=== PATIENT | female | born 1965 | race Caucasian/White ===

== ENCOUNTER 2016-11-26 18:35 | Emergency (ER) | payer SELFPAY ==
[2016-11-26 18:52] VITALS: BP 158/91
--- NOTE | 2016-11-26 20:11 | ERNOTE ---
Head Injury HPI - Narrative Date of Service: 11/26/16 - General Time Seen by Provider: 11/26/16 20:00 Source: patient - Immun/Allergies/Home Medications Immunization: IMMUNIZATION HX Immunizations Up to Date Yes History of Influenza Vaccine No Hx Pneumococcal Vaccination No Allergies/Adverse Reactions: Allergies Allergy/AdvReac Type Severity Reaction Status Date / Time muscle relaxers Allergy Severe Anaphylaxis Uncoded 09/20/14 11:00 Home Medications: HOME MEDICATIONS Naproxen [Naprosyn] 500 mg PO BID PRN #60 tab 11/26/16 [Last Taken Unknown] - Pain Score Pain Score #1 Pain Score: 7 - History of Present Illness Narrative: 51yo, F, presents to ER for evaluation of L. neck pain and L. upper back. Hx of rotator cuff injury in the past to L. shoulder, but states pain feels different. 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 She also admits to being under a lot of stress this week and is unsure if that has contributed to her symptoms. She denies CP, but she did have some heart burn and nausea yesterday, no recurrence today. She does have family hx of heart disease with her ftr. Occurred: other - "several days", intermittently occurring Method of Injury: Reports: no apparent injury Associated Symptoms: Reports: cough - dry, neck pain, nausea. Denies: chest pain, fever/chills, diaphoresis, vomiting Review of Systems - Review of Systems Constitutional: Present: fatigue. Absent: fever, diaphoresis ENT: Present: no symptoms reported Respiratory: Present: cough. Absent: wheezing Cardiology: Present: other - heart burn. Absent: chest pain, palpitations, syncope, edema Gastrointestinal/Abdominal: Present: nausea. Absent: vomiting, diarrhea, constipation, abdominal pain Musculoskeletal: Present: neck pain - L. . Absent: muscle stiffness Skin: Absent: rash Neurological: Absent: headache - Patient's Past Medical History Patient History - Medical: No pertinent hx Patient History - Cancer: No Hx of Cancer Patient History - Surgical Procedures: Cholecystectomy, Hysterectomy, Other - Family History Father Family History - Cardiac/Respiratory: Myocardial Infarction Grandfather-Paternal Family History - Cancer: Bladder Grandfather-Maternal Family History - Cancer: Bone - Social History Smoking Status: Current every day smoker Patient requests Smoking Cessation Consult: No Initiate information on Smoking Cessation: No Physical Exam - Physical Exam General Appearance: Present: wd/wn, alert, no apparent distress Neck: Present: full range of motion, tender lateral - L. lateral cervical muscle region, other - muscle hypertrophy and tenderness along L. cervical muscle region Respiratory: Present: normal breath sounds, no accessory muscle use, lungs clear. Absent: decreased breath sounds, crackles, rhonchi Cardiovascular/Chest: Present: regular rate, rhythm, no murmur Gastrointestinal/Abdominal: Present: normal bowel sounds, nondistended, soft Back Exam: Present: normal inspection, other - mild tenderness at base of L. 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 - Results and Orders Patient's Lab Results:: I have reviewed the patient's lab results. - Vital Signs Patient's Vital Signs:: I have reviewed the patient's vital signs. Vital Signs: Vital Signs 11/26/16 18:48 Temperature 35.7 C L Pulse Rate 85 Respiratory 18 Rate Blood Pressure 158/91 O2 Sat by Pulse 100 Oximetry - EKG EKG: NSR EKG read: Reviewed by me - compared with 01/15/16 EKG - X-Ray X-Ray #1 X-Ray: chest Interpretation: Reviewed by me X-ray Comments: no infiltrates - Progress/Reassessment Chief Complaint: Neck Pain/Injury Progress:: Improved - with toradol rates pain 12/18 Departure Clinical Impression: Neck muscle strain Qualifiers: Encounter type: initial encounter Qualified Code(s): S16.1XXA - Strain of muscle, fascia and tendon at neck level, initial encounter - Departure Disposition: Home self-care Condition: Good Instructions: Musculoskeletal Pain Additional Instructions: Apply heat at 15 minute intervals, 15 min on/15 min off Epsom salt bath soaks may help ease muscle tension Topical biofreeze to the area of discomfort Perform neck stretches Follow up with your doctor if symptoms do not improve Return to ER if symptoms worsen Prescriptions: Naproxen [Naprosyn] 500 mg PO BID PRN #60 tab PRN Reason: Pain
[2016-11-26] MEDS ORDERED: KETOROLAC TROMETHAMINE 60 MG/2 ML VIAL IM ONE ×2 (20:23→20:42)
[2016-11-26 20:46] LABS: Hematocrit 41.7 % (37.0-47.0); Hemoglobin 14.5 gm/dL (12.5-16.0); Mean Cell Volume 95.6 fl (78-100); Mean Corpuscular Hemoglobin 33.3 pg (27-31); Mean Corpuscular Hgb Conc 34.8 g/dl (32-36); Mean Platelet Volume 11.1 fl (6.0-9.5); Neutrophil # 3.8 K/mm3 (1.3-6.0); Neutrophil % 54.6 % (42-75.0); Platelet Count 185 K/mm3 (150-450); Red Blood Count 4.36 M/mm3 (4.2-5.4); Red Cell Distribution Width 12.6 % (11.5-14.0)
[2016-11-26 21:06] LABS: Albumin * 3.8 gm/dl (3.4-5.0); Anion Gap 14.1 mmol/L (6.8-13.8); BUN/Creatinine Ratio 15.9 (9.0-21.6); Bilirubin, Total 0.6 mg/dL (0.0-1.1); Ca. Corrected For Albumin 8.8 mg/dL (8.4-10.2); Carbon Dioxide 22.5 mmol/L (24-32.6); Potassium 3.6 mmol/L (3.4-4.6); Total Protein 7.7 gm/dL (6.2-8.2); Troponin I 0.019 ng/ml (0.00-0.10)
== END 2016-11-26 21:41 | disposition home or self-care (01) ==
LOC: ER 18:35
DX: S16.1XXA Strain of muscle, fascia and tendon at neck level, initial encounter (principal)

== ENCOUNTER 2017-02-17 11:38 | Day surgery (SDC) | payer OTHER ==
[~2017-02-17 11:38] MED LIST: NORMAL SALINE 1,000 ML IV PRN
--- OUTSIDE RECORDS SUMMARY | 2017-02-17 11:42 | XMS REPORT | Continuity of Care Document ---
:1965 Author Organization [facility] ([facility]) Address [place] [address] Phone [phone] Care Team Providers Name Role Phone Unavailable Primary Care Provider Unavailable Source Comments This disclosure is being made pursuant to the Care Everywhere program, applicable federal and state laws, and may not contain all informaitonavailable regarding this patient.[facility] ([facility]) Active Allergies and Adverse Reactions Not on File Current Medications Not on file Active Problems Not on file Most Recent Encounters Date Type Specialty Providers Description 01/05/2017 Lab Requisition Pathology Lab Services, [facility] Dx: Melanocytic nevi of trunk Social History Tobacco Use Types Packs/Day Years Used Date Never Assessed Plan of Care Health Maintenance Due Date Last Done Comments Hepatitis B Vaccine (1 of 3 - Primary Series) 1965 Tdap Vaccine 1978 Lipid Disorder Screening 1985 MMR Vaccine 1985 Td Vaccine 1985 Cervical Cancer Screening 1997 Mammogram 2007 Influenza Vaccine: Seasonal (#1) 06/08/2016 Results from Last 3 Months DERMATOPATHOLOGY EXAM (01/01/2017 9:00 AM) Component Value Range Case Report Surgical Pathology Case: [id number] Authorizing Provider:Lab Services, [facility] Collected: 01/01/2017 09:00 AM Pathologist: Dimaond Acosta MD Received:01/05/2017 12:53 PM Specimen:Skin, other, specify, R upper back Diagnosis Skin, right upper back, shave: Lentiginous compound nevus. I have personally reviewed this case and edited the report as necessary. Clinical Information Tissue source/site: [id number] upper back. Pertinent clinical history and findings: 0.8 cm brown speckled macule. Clinical differential diagnosis: Atypical nevus. Gross Description A.Received in formalin, in a container labeled Angelina Miller, date of , and "R upper back", is a 1.2 x 1.0 x 0.1 cm denny-light brown shave biopsy.The specimen is inked, trisectedand submitted entirely in A1. AJF/cja Microscopic Description Sections show a lentiginous and nested proliferation of cytologically bland nevomelanocytes along the dermoepidermal junction and in the dermis.The dermal component demonstrates maturation with de scent.Margins appear uninvolved in the plane of sectioning. Performed by:Gerda Olmedo MD, R4/montrell Specimen Skin - Skin, other, specify
--- NOTE | 2017-02-17 13:13 | OR ---
Operative Report - Dictated Report Narrative: Location: Main OR Anesthesia: None Preoperative Diagnosis: Microhematuria Postoperative Diagnosis: Same, hyperplastic urethral polyps, benign Procedure: #1 flexible cystoscopy with washing for cytology and culture Indications: 51-year-old female smoker with microhematuria. CT urogram without any pathology. Flexible cystoscopy indicated to rule out bladder pathology. She has been started on topical estrogen and Toviaz 4-8 mg titration. Microhematuria was an incidental finding. Description: Consent obtained. Placed in the dorsal lithotomy position. Prepped and draped. Time-out taken . Scope inserted into the urethra and navigated to the bladder with ease. No tumors stones or suspicious lesions. bladder mucosa was pristine. No real trabeculation Ureters normal in number and position On retroflexion Normal bladder neck. Washing was obtained sent for cytology and culture Normal urethra with the exception of some small hyperplastic polyps which are benign but could explain microhematuria EBL: 0 Specimen: Washing for cytology and culture Condition: tolerate procedure Important Findings: Normal cystoscopy with the exception of hyperplastic polyps which are benign but may explain microhematuria FOLLOW UP: She already has future follow-up with urinalysis to see how she is doing with the topical estrogen and anticholinergic for the overactive bladder. So far infection has not been in the mix.
[2017-02-17 13:28] LABS: Urine Bilirubin Negative (NEGATIVE); Urine Ketone Negative (NEGATIVE); Urine Nitrite Negative (NEGATIVE); Urine Protein Negative (NEGATIVE); Urine Specific Gravity 1.015 SP.GR. (1.005-1.010); Urine Urobilinogen Normal (NORMAL)
[2017-02-17 13:32] VITALS: BP 144/84
[2017-02-17 13:36] LABS: Urine Appearance Clear; Urine Bacteria None Seen; Urine Blood 10 /ul (NEGATIVE); Urine Color Yellow; Urine RBC 0-5 /hpf (0-5); Urine WBC None Seen /hpf (0-5)
== END 2017-02-17 11:39 | disposition home or self-care (01) ==
LOC: AMB 11:38
PROVIDERS: ATTEND Urology
PROC: 3E1K88X Irrigation of Genitourinary Tract using Irrigating Substance, Via Natural or Artificial Opening Endoscopic, Diagnostic (ICD-10-PCS; 2017-02-17)
PROC: 0TJB8ZZ Inspection of Bladder, Via Natural or Artificial Opening Endoscopic (ICD-10-PCS; principal; 2017-02-17 13:00)
DX: N36.2 Urethral caruncle (principal); R31.29 Other microscopic hematuria; Z87.891 Personal history of nicotine dependence; Z68.31 Body mass index [BMI] 31.0-31.9, adult

== ENCOUNTER 2017-03-10 15:47 | Emergency (ER) | payer OTHER ==
[2017-03-10 15:56] VITALS: BP 164/87
--- NOTE | 2017-03-10 16:20 | ERNOTE ---
Integumentary HPI - General Presenting Symptoms: insect bite Time Seen by Provider: 03/10/17 16:00 Source: patient Exam Limitations: no limitations - Immun/Allergies/Home Medications Immunizations: IMMUNIZATION HX Immunizations Up to Date Yes History of Influenza Vaccine No Hx Pneumococcal Vaccination No Allergies/Adverse Reactions: Allergies Allergy/AdvReac Type Severity Reaction Status Date / Time Penicillins AdvReac Mild RASH Verified 03/10/17 15:55 Home Medications: HOME MEDICATIONS Calcium Carbonate [[id number]] 500 mg PO DAILY 02/15/17 [Last Taken Unknown] Ergocalciferol (Vitamin D2) [Vitamin D2] 50,000 unit PO 2XW 02/15/17 [Last Taken Unknown] Fesoterodine Fumarate [Toviaz] 8 mg PO DAILY 02/15/17 [Last Taken Unknown] Naproxen Sodium [Anaprox DS] 550 mg PO Q12H PRN 02/15/17 [Last Taken Unknown] Doxycycline Monohydrate 100 mg PO BID #20 tablet 03/10/17 [Last Taken Unknown] - History of Present Illness Narrative: Patient is here for two concerns: She has had multiple tick bites over the last week, two on her right hip and one each on her medial thighs. The ticks were very small (sharpie tip size) when they were removed. The bite site on the thigh have surrounding erythema and itching, no systemic symptoms. She saw a neurologist today for left sided should and arm pain found to be due to a pinched nerve in her elbow. While in the office she was noticed to have an elevated blood pressure (143/108), she denies any headache, vision changes, chest pain or other symptoms. She has has intermittently slightly elevated blood pressure mainly with pregnancies in the past, never high enough to need medications Location: Reports: lower extremity Quality: Reports: itching Review of Systems - Review of Systems Constitutional: Absent: recent illness, fever, chills EYE: Absent: double vision ENT: Absent: nose congestion, throat swelling Respiratory: Absent: shortness of breath, cough Cardiology: Absent: chest pain, palpitations Gastrointestinal/Abdominal: Absent: nausea, vomiting, diarrhea, constipation, abdominal pain Genitourinary: Present: no symptoms reported Musculoskeletal: Present: neck pain Skin: Present: See HPI Neurological: Absent: headache, dizziness/light-headedness, weakness, numbness - Patient's Past Medical History Patient History - Medical: GERD, Other Patient History - Cardiac/Respiratory: No pertinent hx Patient History - Cancer: Other Patient History - Surgical Procedures: Hysterectomy Patient History - Other: None LMP (females 10-50): other - Family History Father Family History - Medical: , No pertinent hx Family History - Cardiac/Respiratory: Myocardial Infarction Family History - Cancer: No pertinent family hx Grandfather-Paternal Family History - Medical: , No pertinent hx Family History - Cardiac/Respiratory: No pertinent hx Family History - Cancer: Bladder, Bone Grandfather-Maternal Family History - Medical: No pertinent hx Family History - Cardiac/Respiratory: No pertinent hx Family History - Cancer: No pertinent family hx - Social History Living Situations: home Abuse History: No History of abuse Psych History: No pertinent hx Smoking Status: Current every day smoker Cigarettes Packs Per Day: 0.5 Alcohol Use: none Drug Use: none - Immunizations Immunizations Up to Date: Yes Hx Pneumococcal Vaccination: No History of Influenza Vaccine: No Physical Exam - Physical Exam General Appearance: Present: wd/wn, alert, no apparent distress Eye Exam: Normal inspection: bilateral, PERRL: bilateral Ears, Nose, Throat: Present: normal ENT inspection, normal pharynx Respiratory: Present: no respiratory distress, normal breath sounds, no accessory muscle use, lungs clear Cardiovascular/Chest: Present: regular rate, rhythm, no murmur Extremity Exam: Present: other - small bite dhaliwal on right hip without significant sign of infection, on both inner thighs bite dhaliwal with about 8cm surrounding erythema, no significantly increased skin temp or swelling, no inguinal lymph nodes Neurological Exam: Present: alert, oriented, normal mood/affect Skin Exam: Present: normal color, warm/dry Lymphatic Exam: Present: no adenopathy. Absent: inguinal node (R), inguinal node (L) ED Progress - Vital Signs Patient's Vital Signs:: I have reviewed the patient's vital signs. Vital Signs: Vital Signs 03/10/17 03/10/17 15:50 15:56 Pulse Rate 95 92 Respiratory 16 16 Rate Blood Pressure 164/87 O2 Sat by Pulse 99 98 Oximetry - Progress/Reassessment Chief Complaint: Insect Bite Progress Note-Subjective: 03/10/17 16:10 discussed with patient that as ticks were very small they were unlikely attached very long and transmission risk of lyme disease is small but not excluded, as patient has significant surrounding erythema will treat with doxycycline discussed elevated blood pressure without diagnosis of hypertension, as patient is asymptomatic discussed close monitoring at home and follow up with PCP Departure Clinical Impression: Elevated blood pressure reading without diagnosis of hypertension Tick bite of left thigh Qualifiers: Encounter type: initial encounter Qualified Code(s): S70.362A - Insect bite ( nonvenomous), left thigh, initial encounter Tick bite of right thigh with local reaction Qualifiers: Encounter type: initial encounter Qualified Code(s): S70.361A - Insect bite ( nonvenomous), right thigh, initial encounter - Departure Disposition: Home self-care Condition: Good Instructions: Preventing Mosquito-Borne Illnesses Additional Instructions: take your blood pressure at home a couple times a day and write the numbers down call your doctor for a follow up appointment Referrals: Scotty Kaba MD [Primary Care Provider] - Prescriptions: Doxycycline Monohydrate 100 mg PO BID #20 tablet
--- OUTSIDE RECORDS SUMMARY | 2017-03-10 16:23 | XMS REPORT | Continuity of Care Document ---
:1965 Author Organization [facility] ([facility]) [place] [address] Phone [phone] Care Team Providers Name Role Phone Unavailable Primary Care Provider Unavailable Source Comments This disclosure is being made pursuant to the Care Everywhere program, applicable federal and state laws, and may not contain all informaitonavailable regarding this patient.[facility] ([facility]) Active Allergies and Adverse Reactions Not on File Current Medications Not on file Active Problems Not on file Most Recent Encounters Date Type Specialty Providers Description 01/05/2017 Lab Requisition Pathology Lab Services, [facility] Dx: Melanocytic nevi of trunk Social [...] Value Range Case Report Surgical Pathology Case: [id number] Authorizing Provider:Lab Services, [facility] Collected: 01/01/2017 09:00 AM Pathologist: Diamond Acosta MD Received:01/05/2017 12:53 PM Specimen:Skin, other, specify, R upper back Diagnosis Skin, right upper back, shave: Lentiginous compound nevus. I have personally reviewed this case and edited the report as necessary. Clinical Information Tissue source/site: [id number] upper back. Pertinent clinical history and findings: [...]
== END 2017-03-10 16:27 | disposition home or self-care (01) ==
LOC: ER 15:47
DX: R03.0 Elevated blood-pressure reading, without diagnosis of hypertension (principal); S70.362A Insect bite (nonvenomous), left thigh, initial encounter; S70.361A Insect bite (nonvenomous), right thigh, initial encounter; Z72.0 Tobacco use; K21.9 Gastro-esophageal reflux disease without esophagitis

== ENCOUNTER 2017-03-31 12:49 | Day surgery (SDC) | payer OTHER ==
--- OUTSIDE RECORDS SUMMARY | 2017-03-31 12:53 | XMS REPORT | Continuity of Care Document ---
:1965 Author Organization [facility] ([facility]) Address [place] [address] Phone [phone] Care Team Providers Name Role Phone Unavailable Primary Care Provider Unavailable Source Comments This disclosure is being made pursuant to the Care Everywhere program, applicable federal and state laws, and may not contain all informaitonavailable regarding this patient.[facility] ([facility]) Active Allergies and Adverse Reactions Not on File Current Medications Not on file Active Problems Not on file Most Recent Encounters Date Type Specialty Providers Description 01/05/2017 Lab Requisition Pathology Lab Services, [facility] Dx: Melanocytic nevi of trunk Social History Tobacco Use Types Packs/Day Years Used Date Never Assessed Plan of Care Health Maintenance Due Date Last Done Comments Hepatitis B Vaccine (1 of 3 - Primary Series) 1965 Tdap Vaccine 1978 Lipid Disorder Screening 1985 MMR Vaccine 1985 Td Vaccine 1985 Cervical Cancer Screening 1997 Mammogram 2007 Influenza Vaccine: Seasonal (Season Ended) 2017 Results from Last 3 Months DERMATOPATHOLOGY EXAM (01/01/2017 9:00 AM) Component Value Range Case Report Surgical Pathology Case: [id number] Authorizing Provider:Lab Services, [facility] Collected: 01/01/2017 09:00 AM Pathologist: Diamond Acosta MD Received:01/05/2017 12:53 PM Specimen:Skin, other, specify, R upper back Diagnosis Skin, right upper back, shave: Lentiginous compound nevus. I have personally reviewed this case and edited the report as necessary. Clinical Information Tissue source/site: [id number] upper back. Pertinent clinical history and findings: [...]
--- NOTE | 2017-03-31 14:40 | OR ---
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 Imaging negative. Above-mentioned procedures indicated to evaluate bladder. Description: Consent obtained. Placed in the dorsal lithotomy position. Prepped and draped. Time-out taken . Flexible Scope inserted into the urethra and navigated to the bladder with ease. No tumors stones or suspicious lesions . No real trabeculation . Ureters normal in number and position. On retroflexion Normal bladder neck. There is pseudomembranous trigonitis and there was a nonspecific cystitis/debris-type appearance to the urine. Washing was obtained for cytology and culture. Normal urethra EBL: 0 Specimen: Washing for cytology and culture Condition: tolerate procedure Important Findings: Will all depend on urine culture. Responded anticholinergics so we'll continue. I am leaning towards topical estrogen but we'll discuss at next follow-up. I am treating with Levaquin for 5 days and likely would benefit from a methanamine hippurate. Last culture was positive for enterococcus but voided. She has an penicillin allergy. FOLLOW UP: 2-3 weeks with a voided UA. Catheterized residual/UA is positive. Talked about estrogen.
[2017-03-31 19:36] VITALS: BP 112/72
== END 2017-03-31 12:50 | disposition home or self-care (01) ==
LOC: AMB 12:49
PROVIDERS: ATTEND Urology
PROC: 3E1K88X Irrigation of Genitourinary Tract using Irrigating Substance, Via Natural or Artificial Opening Endoscopic, Diagnostic (ICD-10-PCS; 2017-03-31)
PROC: 0TJB8ZZ Inspection of Bladder, Via Natural or Artificial Opening Endoscopic (ICD-10-PCS; principal; 2017-03-31 15:05)
DX: N30.31 Trigonitis with hematuria (principal); E66.9 Obesity, unspecified; Z68.30 Body mass index [BMI] 30.0-30.9, adult; Z87.891 Personal history of nicotine dependence

== ENCOUNTER 2017-06-18 08:51 | Day surgery (SDC) | payer OTHER ==
[~2017-06-18 08:51] MED LIST changes: -NORMAL SALINE 1,000 ML IV PRN; +RINGER'S SOLUTION,LACTATED 1,000 ML IV PRN; +ceFAZolin SODIUM 1 GM VIAL IV PRN
[2017-06-18] MEDS ORDERED: RINGER'S SOLUTION,LACTATED 1,000 ML IV ONE (10:45)
--- NOTE | 2017-06-18 11:42 | OR ---
Operative Report - Dictated Report Narrative: Date: 06/18/2017 Physician: Ruben Douglas M.D. Vegetable Tester: Sam Jose PA-C Preoperative diagnosis: Left Shoulder supraspinatus rotator cuff tear, acromioclavicular arthrosis Postoperative diagnosis: Left Shoulder degenerative labral tear, acromioclavicular arthrosis Procedure: Left shoulder arthroscopy with labral debridement, Willie procedure Anesthesia: General plus regional Complications: None Estimated blood loss: Minimal Specimens: Bone for disposal Retained implants: None Drains: None Indications: Mrs. Miller Is a 51 year-old female who has been followed in my clinic with complaints of shoulder pain consistent rotator cuff and acromioclavicular arthrosis. Physical exam and diagnostic imaging were consistent with his complaints and concern for intrasubstance rotator cuff tear and acromioclavicular arthrosis. Conservative measures have failed including, but not limited to, passage of time, activity modification, medications, physical therapy/home exercise program, or injections. The risks, benefits, and alternatives were discussed in clinic. The risks being , bleeding, infection, blood clots, nerve, tendon, ligament, blood vessel injury, persistent pain, arthrosis, stiffness, need for prolonged therapy, need for additional procedures, and persistent symptoms. Consent was obtained in the clinic. Procedure: After marking the correct extremity in the preoperative holding area, a timeout was performed in the operating room. IV antibiotics consisting of Ancef were administered prior to the procedure. A general followed by regional anesthetic was induced by the nurse center aisle cashier per my request. This was in the supine position, then the patient was transitioned to a beachchair position with all bony prominences well-padded, head in neutral, the nonoperative arm well supported, and the legs padded with SCDs in place. The operative shoulder was then prepped and draped in a standard sterile fashion. Preoperatively the shoulder had full passive range of motion, and no gross instability. After marking out the bony landmarks, saline was infused into the joint through a posterior lateral portal site. A estee incision was made, and the blunt trocar and cannula was introduced into the shoulder joint. An accessory portal was placed in the rotator cuff interval using a spinal needle for guidance. Upon initial evaluation, the biceps tendon showed note tendinopathy or tear. The middle glenohumeral ligament was unremarkable. Subscapularis tendon was unremarkable. The glenoid showed no arthrosis. The humeral head articular surface showed no arthrosis. The anterior labrum was frayed but otherwise intact. The superior labrum was unremarkable. The pouch was unremarkable. The posterior labrum was intact. The supraspinatus tendon was thin but not frankly torn approximately 2 cm off the insertion. There was continuity and no signs of insertional tear. A tag stitch was placed in the area of concern for evaluation and the subacromial space. The infraspinatus tendon was unremarkable. Utilizing a shaver the anterior portion of the labrum was debrided of its frayed edges. Attention was then turned to the subacromial space. Subacromial bursectomy was performed utilizing the prior portals. The coracoacromial ligament was unremarkable. The bursal side of the rotator cuff demonstrated no appreciable tear and no significant thinning in the area that was tagged. The acromial arch was unremarkable. Attention was then turned to the distal clavicle. A longitudinal incision was made over the acromioclavicular joint. This was sharply dissected down to the chromic clavicular capsule. Cautery was utilized for hemostasis. A longitudinal capsulotomy was made and elevated off the anterior posterior aspects of the distal clavicle. There is notable hypertrophic bone and loss of joint space between the acromion and clavicle. Protecting the surrounding soft tissues, an oscillating saw was utilized in order to resect approximately 7-10 mm of bone from the distal clavicle. The remaining clavicle was stable after removing this. The shoulders place a range of motion and showed no remaining impingement between the acromion and the clavicle. Wounds were then thoroughly irrigated. The capsule was closed with interrupted 0 Vicryl to subcutaneous tissue with 3-0 Vicryl. Skin was closed with 4-0 nylon. The wounds were thoroughly irrigated. The portal sites were closed with interrupted nylon. Dressings consisting of Xeroform, 4 x 4, ABD, soft roll, and tape were applied. All sponge, needle, blade, and instrument counts were correct prior to closing the wounds. The patient was awoken and transferred to the postanesthesia care unit in stable condition.
--- NOTE | 2017-06-18 12:52 | OR ---
Anesthesia Procedure Note - Anesthesia Procedure Note Date of Service: 06/18/17 Narrative: Vital Signs - Last Taken Temp 36.3 C L 06/18/17 12:39 Pulse 72 06/18/17 12:40 Resp 16 06/18/17 12:40 BP 124/93 06/18/17 12:40 Pulse Ox 98 06/18/17 12:40 O2 Oxygen Delivery Method Room Air 06/18/17 12:50 ANESTHESIA PROCEDURE NOTE Date of Procedure: 06/18/2017. Time of procedure: 934. Performed by: Lucius Boswell CRNA Refinery Operator Light Ends Recovery: None. Preprocedure diagnosis: Left shoulder rotator cuff tear. Post procedure diagnosis: Same. Procedure: Left ultrasound guided interacalene nerve block for postoperative analgesia. Indications: The patient is a 51 -year-old female who is having elective left shoulder arthroscopy and elects to have a postoperative pain block. Findings: See below. Details of the procedure: The tissue over the intended target site was cleansed with ChloraPrep. 1 ml Lidocaine 1 % was infiltrated to the skin and subcutaneous tissue. Under sterile technique and ultrasound guidance a 21-gauge block needle was inserted to the left braclial plexus nerve bundle between the anterior scalene and the middle scalene muscles. 40 mL's of 0.5% bupivacaine plus epinephrine 1 200,000 was injected after negative aspiration for blood. Spread of local anesthetic around the brachial plexus was observed throughout the injection with ultrasound. The needle was removed intact. No complications were noted. The images were retained in the Hospital medical database . EBL: Minimal. Fluids: N/A. Specimen: N/A. Post procedure condition: The patient tolerated the procedure well. No complications were noted. Thank you for this consultation. Lucius Boswell CRNA
[2017-06-18 16:36] VITALS: BP 124/93
== END 2017-06-18 08:52 | disposition home or self-care (01) ==
LOC: AMB 08:51
PROVIDERS: ATTEND Orthopaedic Surgery
PROC: 0PBB0ZZ Excision of Left Clavicle, Open Approach (ICD-10-PCS; 2017-06-18)
PROC: 3E0T3BZ Introduction of Anesthetic Agent into Peripheral Nerves and Plexi, Percutaneous Approach (ICD-10-PCS; 2017-06-18)
PROC: 0RBK4ZZ Excision of Left Shoulder Joint, Percutaneous Endoscopic Approach (ICD-10-PCS; principal; 2017-06-18 11:00)
DX: S43.432D Superior glenoid labrum lesion of left shoulder, subsequent encounter (principal); M19.012 Primary osteoarthritis, left shoulder; I11.0 Hypertensive heart disease with heart failure; I50.9 Heart failure, unspecified; K21.9 Gastro-esophageal reflux disease without esophagitis; E55.9 Vitamin D deficiency, unspecified; Z68.31 Body mass index [BMI] 31.0-31.9, adult

== ENCOUNTER 2017-06-29 16:28 | Emergency (ER) | payer OTHER ==
[2017-06-29] MEDS ORDERED: NORMAL SALINE 1,000 ML IV ONE (16:58)
[2017-06-29 17:13] LABS: Hemoglobin 14.6 gm/dL (12.5-16.0); Mean Cell Volume 99.1 fl (78-100); Mean Corpuscular Hemoglobin 33.6 pg (27-31); Neutrophil % 57.4 % (42-75.0); Platelet Count 210 K/mm3 (150-450); Red Blood Count 4.34 M/mm3 (4.2-5.4); Red Cell Distribution Width 12.6 % (11.5-14.0); White Blood Count 8.8 K/mm3 (4.0-10.5)
[2017-06-29 17:23] LABS: Urine Bilirubin Negative (NEGATIVE); Urine Ketone Negative (NEGATIVE); Urine Nitrite Negative (NEGATIVE); Urine Protein Negative (NEGATIVE); Urine Specific Gravity >=1.030 SP.GR. (1.005-1.010); Urine Urobilinogen Normal (NORMAL)
[2017-06-29 17:29] LABS: Albumin * 3.6 gm/dl (3.4-5.0); Anion Gap 15.8 mmol/L (6.8-13.8); BUN/Creatinine Ratio 15.7 (9.0-21.6); Bilirubin, Total 0.6 mg/dL (0.0-1.1); CRP 0.8 mg/dL (0.0-0.9); Ca. Corrected For Albumin 9.2 mg/dL (8.4-10.2); Calcium * 9.2 mg/dL (7.9-10.9); Carbon Dioxide 21.9 mmol/L (24-32.6); Potassium 3.7 mmol/L (3.4-4.6); Total Protein 7.5 gm/dL (6.2-8.2)
[2017-06-29 17:33] LABS: Urine Appearance Clear; Urine Bacteria 2+; Urine Blood 5 /ul (NEGATIVE); Urine Color Yellow; Urine RBC None Seen /hpf (0-5); Urine WBC None Seen /hpf (0-5)
[2017-06-29] MEDS ORDERED: DIATRIZOATE MEGLUMINE, SODIUM 30 ML BTL ONE (17:42)
[2017-06-29] MEDS ORDERED: DIATRIZOATE MEGLUMINE, SODIUM 30 ML BTL PO ONE (17:46)
--- NOTE | 2017-06-29 18:36 | ERNOTE ---
<Grupo Ibrahim - Last Filed: 06/29/17 19:57> Abdominal HPI - Narrative Date of Service: 06/29/17 - General Chief Complaint: Abdominal Pain Time Seen by Provider: 06/29/17 16:46 Source: patient Exam Limitations: no limitations - Immun/Allergies/Home Medications Immunizatons: IMMUNIZATION HX Immunizations Up to Date Yes History of Influenza Vaccine Yes Hx Pneumococcal Vaccination No Allergies/Adverse Reactions: Allergies Penicillins Allergy (Mild, Verified 06/29/17 16:41) Hives and rash iodine Adverse Reaction (Intermediate, Verified 06/29/17 16:41) Burning and rash with perineal prep Home Medications: HOME MEDICATIONS Calcium Carbonate [[id number]] 500 mg PO TID 02/15/17 [Last Taken Unknown] Ergocalciferol (Vitamin D2) [Vitamin D2] 50,000 unit PO 2XW 02/15/17 [Last Taken Unknown] Propranolol HCl [Inderal LA] 80 mg PO HS 03/30/17 [Last Taken Unknown] Oxybutynin Chloride [Ditropan Xl] 5 mg PO HS 03/31/17 [Last Taken 03/29/17] oxyCODONE HCL/ACETAMINOPHEN [Percocet 5 MG/325 MG] 1 - 2 tab PO Q4H PRN [Last Taken Unknown] - History of Present Illness Narrative: Patient presents to the ED for abdominal pain. She relates intermittent RLQ pain since Wednesday of this week. No fever. Brenda MIMS noted. Vomited once. Has never had anything like this before. Nothing seems to make this better or worse. Pain moderate at times, minimal now. Seems to come and go. Has not seen anyone else for this. Timing: intermittent Quality: mild Activities at Onset: none Modifying Factors - (Improves): Present: other - nothing Modifying Factors - (Worsens): Present: other - nothing Associated Symptoms: Absent: chest pain, fever/chills, shortness of breath, swelling/mass in abdomen, weakness Prior Abdominal Problems: Present: none Prior Treatment: Absent: recently seen Review of Systems - Review of Systems Constitutional: Absent: fever ENT: Absent: sore throat Respiratory: Absent: shortness of breath Cardiology: Absent: chest pain Gastrointestinal/Abdominal: Present: See HPI Genitourinary: Absent: dysuria Musculoskeletal: Absent: back pain Skin: Absent: rash Neurological: Absent: weakness - Patient's Past Medical History Patient History - Medical: Arthritis, GERD, Other Patient History - Cardiac/Respiratory: Hypertension, Other Patient History - Cancer: No Hx of Cancer, Other Patient History - Surgical Procedures: Hysterectomy, Urology Patient History - Other: None LMP (females 10-50): hyserectomy - Family History Father Family History - Medical: , No pertinent hx Family History - Cardiac/Respiratory: Myocardial Infarction Family History - Cancer: No pertinent family hx Grandfather-Paternal Family History - Medical: , No pertinent hx Family History - Cardiac/Respiratory: No pertinent hx Family History - Cancer: Bladder, Bone Grandfather-Maternal Family History - Medical: No pertinent hx Family History - Cardiac/Respiratory: No pertinent hx Family History - Cancer: No pertinent family hx - Social History Living Situations: home Abuse History: No History of abuse Psych History: No pertinent hx Smoking Status: Current every day smoker Alcohol Use: none Drug Use: none - Immunizations Immunizations Up to Date: Yes Hx Pneumococcal Vaccination: No History of Influenza Vaccine: Yes Physical Exam - Physical Exam General Appearance: Present: alert, no apparent distress Head Exam: Present: normal inspection, no evidence of injury Eye Exam: Normal inspection: bilateral, PERRL: bilateral Ears, Nose, Throat: Present: normal ENT inspection Neck: Present: normal inspection Respiratory: Present: no respiratory distress, normal breath sounds, no accessory muscle use, lungs clear Cardiovascular/Chest: Present: regular rate, rhythm Gastrointestinal/Abdominal: Present: normal bowel sounds, soft, other - RLQ tenderness to palpation. No guarding. Non-surgical exam. Back Exam: Absent: CVA tenderness (R), CVA tenderness (L) Extremity Exam: Present: normal inspection Neurological Exam: Present: alert, normal mood/affect, no motor/sensory deficits Skin Exam: Present: normal color, warm/dry. Absent: skin rash ED Progress - Results and Orders Patient's Lab Results:: I have reviewed the patient's lab results. - Vital Signs Patient's Vital Signs:: I have reviewed the patient's vital signs. Vital Signs: Vital Signs 06/29/17 06/29/17 16:33 17:48 Temperature 36.3 C L 36.3 C L Pulse Rate 80 83 Respiratory 16 16 Rate Blood Pressure 150/91 123/72 O2 Sat by Pulse 98 97 Oximetry - Progress/Reassessment Chief Complaint: Abdominal Pain - Transfer of Care Physician Sign Out: Grupo Ibrahim Receiving Physician: Luis Plunkett Pending Results: CT/MRI results Departure - Departure Clinical Impression: Constipation due to pain medication Abdominal pain Qualifiers: Abdominal location: right lower quadrant Qualified Code(s): R10.31 - Right lower quadrant pain Disposition: Home self-care Condition: Good Instructions: Constipation, Adult, [id number] Additional Instructions: take stool softeners once or twice a day to keep stools soft. Referrals: Scotty Kaba MD [Primary Care Provider] - <Luis Plunkett - Last Filed: 06/29/17 20:38> Abdominal HPI - Immun/Allergies/Home Medications Immunizatons: IMMUNIZATION HX Immunizations Up to Date Yes History of Influenza Vaccine Yes Hx Pneumococcal Vaccination No ED Progress - Results and Orders Patient's Lab Results:: I have reviewed the patient's lab results. Results and Orders: Laboratory Tests 06/29/17 06/29/17 06/29/17 17:05 17:05 17:08 WBC 8.8 Hgb 14.6 Hct 43.0 Plt Count 210 Sodium Potassium BUN Creatinine Random Glucose Calcium Total Bilirubin AST ALT Alkaline Phosphatase C-Reactive Prot, Quant Total Protein Albumin Lipase Urine Color Yellow Urine Appearance Clear Urine pH 5.0 Ur Specific [place] >=1.030 Urine Protein Negative Urine Glucose (UA) Negative Urine Ketones Negative Urine Blood 5 H Urine Nitrate Negative Urine Bilirubin Negative Urine Urobilinogen Normal Ur Leukocyte Esterase Negative Urine RBC None seen Urine WBC None seen Ur Epithelial Cells 0-5 Calcium Oxalate Crystal Few - 1+ H Urine Bacteria 2+ H Urine Culture Comments No culture indicated Urine HCG, Qual Negative 06/29/17 17:08 WBC Hgb Hct Plt Count Sodium 139 Potassium 3.7 BUN 17 Creatinine 1.08 Random Glucose 119 H Calcium 9.2 Total Bilirubin 0.6 AST 18 ALT 44 Alkaline Phosphatase 123 C-Reactive Prot, Quant 0.8 Total Protein 7.5 Albumin 3.6 Lipase 123 Urine Color Urine Appearance Urine pH Ur Specific [place] Urine Protein Urine Glucose (UA) Urine Ketones Urine Blood Urine Nitrate Urine Bilirubin Urine Urobilinogen Ur Leukocyte Esterase Urine RBC Urine WBC Ur Epithelial Cells Calcium Oxalate Crystal Urine Bacteria Urine Culture Comments Urine HCG, Qual - Vital Signs Patient's Vital Signs:: I have reviewed the patient's vital signs. Vital Signs: Vital Signs 06/29/17 06/29/17 06/29/17 16:33 17:48 18:36 Temperature 36.3 C L 36.3 C L Pulse Rate 80 83 75 Respiratory 16 16 18 Rate Blood Pressure 150/91 123/72 121/70 O2 Sat by Pulse 98 97 98 Oximetry 06/29/17 06/29/17 18:56 19:53 Temperature Pulse Rate 79 76 Respiratory 18 18 Rate Blood Pressure 127/89 126/78 O2 Sat by Pulse 98 98 Oximetry - CT/Ultrasound CT/Ultrasound Narrative: CT abd Pelvis with contrast: 15mm hypodense right renal lesion most likely a cyst normal appendix mild fecal retention Chronic L5 spondylolysis - Progress/Reassessment Progress:: Improved Progress Note-Subjective: 06/29/17 20:14 spoke with patient and discussed CT results. Discussed constipation and pain medications. Discussed Ca oxylate crystals in urine, pt states Dr. Pace mentioned the same but also mentioned she did not have stones. She does have bladder polyps that he is treating. Pt alert and oriented and not having any pain at this time. Pt expressed understanding of diagnosis and recommended treatment
[2017-06-29 20:35] VITALS: BP 140/78
== END 2017-06-29 20:34 | disposition home or self-care (01) ==
LOC: ER 16:28
DX: K59.03 Drug induced constipation (principal); R10.31 Right lower quadrant pain; F17.200 Nicotine dependence, unspecified, uncomplicated; I10 Essential (primary) hypertension

== ENCOUNTER 2017-10-27 08:41 | Day surgery (SDC) | payer OTHER ==
[2017-10-27] MEDS ORDERED: BUPIVACAINE HCL 50 ML VIAL IJ ONE (10:42)
--- NOTE | 2017-10-27 11:02 | POSTOP NO ---
Date of Surgery: 10/27/17 Patient Tolerated the Procedure: Well Post Operative Diagnosis/Procedures: Vocational Instructor: Sam Jose PA-C Post-operative Diagnosis: Left cubital tunnel syndrome Finding: Above Procedure: Left cubital tunnel release Estimated Blood Loss: Minimal Specimens: None
--- NOTE | 2017-10-27 11:03 | OR ---
Operative Report - Dictated Report Narrative: Date: 10/27/2017 Physician: Ruben Douglas M.D. Veneer Repairer Machine: Sam Jose PA-C Preoperative diagnosis: Left cubital tunnel syndrome Postoperative diagnosis: Left cubital tunnel syndrome Procedure: Left ulnar nerve decompression at the cubital tunnel Anesthesia: General Plus local Complications: None Estimated blood loss: Minimal Tourniquet time: 15 Minutes at 250 mmHg Specimens: None Retained implants: None Drains: None Indications: Mrs. Miller Is a 52-year-old female who has been followed in my clinic with complaints of cubital tunnel syndrome. Physical exam as well as diagnostic testing showed compression of the ulnar nerve compatible with cubital tunnel syndrome. Conservative measures had failed including, but not limited to, activity modification, medications, and/or splinting. The risks, benefits, and alternatives were discussed in clinic. The risks being bleeding, infection, nerve, tendon, blood vessel injury, persistent pain, wound competitions, weakness, palm pain, need for additional procedures, and persistent symptoms. Consent was obtained in the clinic. Procedure: After marking the correct extremity in the preoperative holding area, a timeout was performed in the operating room. IV antibiotics consisting of Ancef were administered prior to the procedure. A well-padded tourniquet was applied to the operative upper arm. The arm was then prepped and draped in a standard sterile fashion. The arm was exsanguinated and the tourniquet was inflated to 250 mmHg. 0.5% Marcaine without epinephrine was infused into the projected incision site over the medial elbow. Using loupe magnification, a longitudinal incision centered over the cubital tunnel was made approximately 6 centimeters in length. Blunt dissection was carried down to the subcutaneous tissues using bipolar cautery for hemostasis. Care was taken to protect the identified underlying cutaneous nerves. The ulnar nerve was identified as it passed through the medial intermuscular septum along the distal triceps. A release of the canal in this area as the ulnar nerve passed anterior to posterior was performed in order to decompress the nerve at this site. The nerve was dissected releasing the overlying soft tissues while maintaining the vascularity of the nerve down to the area of the medial epicondyles and Kunz' s ligament. The nerve was completely decompressed as it passed posterior to the medial condyle and was followed into the flexor carpi ulnaris. The deep fascia of the flexor carpi ulnaris muscle was released in order to decompress the nerve at this site. The first branch of the ulnar nerve was protected as well as any identified recurrent branches. The elbow was placed through range of motion and it was noted that the nerve was not unstable nor did it appear to be under tension as it passed behind the medial epicondyle. For this reason it was not felt that a transposition was not necessary. Once it was felt that we had completely released the compressive structures on the ulnar nerve, the wound was thoroughly irrigated and the tourniquet was deflated. Hemostasis was obtained using pressure and bipolar cautery. Once adequate hemostasis was in place local anesthetic was placed in the skin edges, and the subcutaneous tissue was closed with interrupted Vicryl. The skin was closed with 4-0 nylon and sterile dressings consisting of Xeroform, 4 x 4, soft roll, and a forearm Ronnie wrap was applied. All sponge, needle, blade, and instrument counts were correct prior to closing the wounds. The patient was awoken and transferred to the postanesthesia care unit in stable condition.
[2017-10-27] MEDS ORDERED: RINGER'S SOLUTION,LACTATED 1,000 ML IV ONE (11:15)
[2017-10-27 12:42] VITALS: BP 122/68
== END 2017-10-27 08:42 | disposition home or self-care (01) ==
LOC: AMB 08:41
PROVIDERS: ATTEND Orthopaedic Surgery
PROC: 01N40ZZ Release Ulnar Nerve, Open Approach (ICD-10-PCS; principal; 2017-10-27 11:40)
DX: G56.22 Lesion of ulnar nerve, left upper limb (principal); I10 Essential (primary) hypertension; K21.9 Gastro-esophageal reflux disease without esophagitis; E55.9 Vitamin D deficiency, unspecified; Z68.31 Body mass index [BMI] 31.0-31.9, adult